=== PATIENT | male | born 1960 | race Caucasian/White ===

== ENCOUNTER 2018-09-07 23:01 | Emergency (ER) | payer OTHER ==
[~2018-09-07] VITALS: Ht 182.9 cm; Wt 81.7 kg
[~2018-09-07 23:01] MED LIST: IBUP400 PO
[2018-09-07 23:26] LABS: BASOPHILS ABSOLUTE AUTO 0.11 K/mm3 (0.00-0.23); BASOPHILS PERCENT AUTO 1 % (0-2); EOSINOPHILS ABSOLUTE AUTO 0.16 K/mm3 (0.00-0.68); EOSINOPHILS PERCENT AUTO 2 % (0-6); Hematocrit 45.3 % (37.0-53.0); Hemoglobin 14.6 g/dL (13.5-17.5); IMMATURE GRAN ABSOLUTE AUTO 0.05 K/mm3 (0.00-0.10); IMMATURE GRAN PERCENT AUTO 1 % (0-1); LYMPHOCYTES ABSOLUTE AUTO 3.23 K/mm3 (0.84-5.20); LYMPHOCYTES PERCENT AUTO 35 % (21-46); MONOCYTES ABSOLUTE AUTO 0.58 K/mm3 (0.16-1.47); MONOCYTES PERCENT AUTO 6 % (4-13); Mean Corpuscular HGB 28.1 pg (26.0-34.0); Mean Corpuscular HGB Conc 32.2 g/dL (31.5-36.5); Mean Corpuscular Volume 87 fL (80-100); Mean Platelet Volume 9.2 fL (9.1-12.4); NEUTROPHILS ABSOLUTE AUTO 5.01 K/mm3 (1.96-9.15); NEUTROPHILS PERCENT AUTO 55 % (41-73); Platelet Count 253 K/mm3 (150-400); RDW Coefficient Variation 14.2 % (11.7-14.2); RDW Standard Deviation 45.1 fL (35.1-46.3); White Blood Cell Count 9.14 K/mm3 (4.00-11.30)
[2018-09-07 23:43] LABS: Alanine Aminotransfer (ALT/SGP 24 U/L (12-78); Albumin, Blood 3.9 g/dL (3.4-5.0); Albumin/Globulin Ratio 0.8 (0.8-1.8); Alk Phos 95 U/L (50-136); Anion Gap 8 mmol/L (6-16); Aspartate Aminotrans (AST/SGOT 22 U/L (12-37); Bilirubin, Total 0.2 mg/dL (0.1-1.0); Blood Urea Nitrogen 9 mg/dL (8-24); CO2, Blood 28 mmol/L (21-32); Calcium, Blood 8.5 mg/dL (8.5-10.1); Chloride, Blood 100 mmol/L (98-108); Creatinine, Blood 0.75 mg/dL (0.60-1.20); Globulin, Blood 4.6 g/dL (2.2-4.0); Glomerular Filtration Rate >60 (60-); Glucose, Blood 150 mg/dL (70-99); International Normalized Ratio 0.98; Potassium, Blood 3.2 mmol/L (3.5-5.5); Prothrombin Time Results 10.4 Sec (9.7-11.5); Sodium, Blood 136 mmol/L (136-145); Total Protein, Blood 8.5 g/dL (6.4-8.2)
[2018-09-07 23:51] LABS: Ethanol (Alcohol), Blood, Med 475 mg/dL
[2018-09-08 00:02] LABS: PCO2 Arterial 49.4 mmHg (35-45); PO2 Arterial 102 mmHg (80-100); pH Blood Arterial 7.36 (7.35-7.45)
== END 2018-09-08 05:20 | disposition short-term general hospital (02) ==
LOC: ER 23:01
PROVIDERS: Emergency Medicine
DX: S06.9X2A Unspecified intracranial injury with loss of consciousness of 31 minutes to 59 minutes, initial encounter (principal); S01.111A Laceration without foreign body of right eyelid and periocular area, initial encounter; F10.129 Alcohol abuse with intoxication, unspecified; Y90.8 Blood alcohol level of 240 mg/100 ml or more; K92.2 Gastrointestinal hemorrhage, unspecified; W18.30XA Fall on same level, unspecified, initial encounter; Z79.899 Other long term (current) drug therapy; F17.200 Nicotine dependence, unspecified, uncomplicated
CPT/HCPCS: 12011; 31500; 31720; 36415; 36600; 51702; 70450; 71045; 72125; 80053; 82803; 83690; 85025; 85610; 86850; 86900; 86901; 94002; 96365-59; 96366-59; 96368; 96375-59; 96376-59; 99291-25; 99292; C9113; G0480; J2250; J2354; J2704; J3010; J7030; J7050